=== PATIENT | male | born 1995 | race Caucasian/White ===

== ENCOUNTER → 2020-03-19 10:47 | Outpatient (BNVA) | payer OTHER, SELFPAY | PROVIDERS: Visit Provider Nurse Practitioner Family | DX: R35.0 Frequency of micturition (principal) | CPT/HCPCS: 81000; 87086 ==

== ENCOUNTER 2021-11-23 08:55 | Day surgery (SDC) | payer OTHER, SELFPAY ==
[2021-11-22 12:24] VITALS: BMI 32.3
[2021-11-23 09:23] VITALS: BP 138/76; PULSE 65; RESP 18; TEMP 36.1; O2SAT 96
[2021-11-23] MEDS: sodium chloride 0.9% 1,000 ML 30 ML IV (09:27)
--- NOTE | 2021-11-23 09:58 | ANES.PREANE2 ---
Pre-Anesthetic Assessment Height/Weight: Height 1.85 m Weight 111.13 kg Temp Pulse Resp BP Pulse Ox 97.0 F L 65 18 138/76 96 11/23/21 09:23 11/23/21 09:23 11/23/21 09:23 11/23/21 09:23 11/23/21 09:23 Preop Diagnosis: Bleeding per rectum Operation Date: 11/23/21 10:30 Proposed Procedures p Colonoscopy 39866,Z83.714,K62.5(Not Applicable) - Juan C Mendoza MD Familial anesthetic complications: None Last intake: Intake Last Liquid Date 11/23/21 Last Liquid Time 08:00 Last Solid Date 11/22/21 Last Solid Time 08:00 Social No alcohol and No tobacco Exam alert, oriented x 3, clear to auscultation bilaterally and regular rate & rhythm Airway Mallampati: Class III Dentition: full Pulmonary None reported CV/HEM None reported None reported Hepatic None reported GI None reported Metabolic None reported Musc/skel None reported Neuropsych None reported Anesthetic Plan ASA status: 1 Anesthesia: MAC Risk of > 500 ml blood loss (7ml/kg in children): No Medications/Allergies Home Medications Medication Instructions Recorded Confirmed Last Taken Type No Known Home Medications 03/19/20 11/23/21 Unknown History Allergies Allergy/AdvReac Type Severity Reaction Status Date / Time No Known Allergies Allergy Verified 11/23/21 09:48 Current Medications Generic Name Dose Route Start Last Admin Trade Name Freq PRN Reason Stop Dose Admin Sodium Chloride 1,000 mls @ 30 mls/hr 11/23/21 09:15 11/23/21 09:27 Sodium Chloride 0.9% IV 11/24/21 09:14 30 mls/hr .Q24H LISANDRO Administration PFSH Anesthesia Medical History Family history of familial polyposis Rectal bleeding Social History Smoking and tobacco status: never smoked Alcohol intake: never Marital status: Single Number of children: 1 Current occupational status: employed Current gender identity: Male Data Anesthesia Cardiac Studies: No Data to Display
--- NOTE | 2021-11-23 11:03 | W.PM.OPSUD ---
Surgery/Procedure H&P Update DATE OF PROCEDURE: November 23, 2021 DATE H&P PERFORMED: 11/22/21 H&P UPDATE INFORMATION: I have reviewed H&P completed within last 30 days, I have examined patient prior to procedure and No changes to prior documentation PREOP DIAGNOSIS: Bleeding per rectum PRIMARY INDICATION FOR PROCEDURE: The same PLANNED PROCEDURE: Operation Date: 11/23/21 10:30 Proposed Procedures p Colonoscopy 63671,Z83.714,K62.5(Not Applicable) - Juan C Mendoza MD
[2021-11-23 11:30] VITALS: BP 111/62; PULSE 63; RESP 18; TEMP 36.4; O2SAT 94
[2021-11-23 11:47] VITALS: BP 117/59; PULSE 62; RESP 18; O2SAT 98
--- NOTE | 2021-11-23 16:31 | ANE.PACU2 ---
Inpatient post-anesthesia follow up: Airway intact: Yes Vital signs: Temperature 97.5 F Pulse Rate 62 Respiratory Rate 18 Blood Pressure 117/59 Pulse Oximetry 98 Oxygen Delivery Me thod Room Air Oxygen Flow Rate Fraction of Inspir ed Oxygen Hydration adequate: Yes Nausea and vomiting: Yes Pain level: 1 Mental status: Baseline
== END 2021-11-23 12:00 | disposition home or self-care (01) ==
PROVIDERS: PCP Family Medicine Adult Medicine; Visit Provider Surgery
PROC: 0DJD8ZZ Inspection of Lower Intestinal Tract, Via Natural or Artificial Opening Endoscopic (ICD-10-PCS; CPT 45378; principal; 2021-11-23 10:30)
DX: K62.5 Hemorrhage of anus and rectum (principal); D12.8 Benign neoplasm of rectum
CPT/HCPCS: 45380; 88305; J2704; J7030